=== PATIENT | female | born 1990 | race Caucasian/White ===

== ENCOUNTER 2017-06-30 09:00 | Emergency (ER) | payer OTHER ==
[2017-06-30 09:11] VITALS: BP 103/74; PULSE 81; RESP 16; TEMP 97.3; O2SAT 99
== END 2017-06-30 09:13 | disposition left against medical advice (07) ==
LOC: C.ER 09:00
DX: Z02.89 Encounter for other administrative examinations (principal); Z00.00 Encounter for general adult medical examination without abnormal findings